=== PATIENT | male | born 1995 | race Two or more races ===

== ENCOUNTER 2019-11-27 21:39 | Emergency (ER) | payer OTHER ==
[~2019-11-27] VITALS: Ht 188 cm; Wt 136.1 kg
[2019-11-27 22:39] VITALS: BP 117/78
[2019-11-27] MEDS ORDERED: TETANUS-DIPTH-ACEL PERTUSSIS 0.5ML SYR Tdap IM ONE (22:45)
[2019-11-27] MEDS ORDERED: SILVER SULFADIAZINE 1 % TOPICAL CREAM 50GM TOP ONE (22:45)
== END 2019-11-27 23:36 | disposition home or self-care (01) ==
LOC: ER 21:46
DX: T25.211A Burn of second degree of right ankle, initial encounter (principal); S90.521A Blister (nonthermal), right ankle, initial encounter; X10.2XXA Contact with fats and cooking oils, initial encounter; Y93.89 Activity, other specified; Y92.89 Other specified places as the place of occurrence of the external cause; Y99.8 Other external cause status
CPT/HCPCS: 90471; 90715